=== PATIENT | female | born 1975 | race Caucasian/White ===

== ENCOUNTER → 2023-02-24 | Outpatient (CLI) | payer OTHER ==
--- NOTE | 2023-02-24 12:29 | USB ---
Reason for Exam: Additional evaluation requested from abnormal screening. Patient History: Menarche at age 7. First Full-Term at age 15. Hormonal Contraceptives, from age 16 until age 36. Risk Values: Alissa 5 year model risk: 0.7%. NCI Lifetime model risk: 7.3%. Technique: Method: Targeted. Findings: The lower outer quadrant of the left breast, the axilla of the left breast and the retroareolar of the left breast were scanned. At the 4:00 position 6 cm from the nipple is an oval hypoechoic area. Gunn are not smooth. Through-transmission is not evident. This is of uncertain etiology. Biopsy is recommended. There is a large dilated duct present. No obstructing etiology is identified. There is a small hypoechoic area which may be a small duct estimated to measure 0.4 x 0.2 x 0.5 cm. Short-term follow-up can be performed with ultrasound. Overall Assessment: Suspicious, BI-RAD 4 Management: Ultrasound Core Biopsy of the left breast. A clinical breast exam by your physician is recommended on an annual basis and results should be correlated with mammographic findings. This exam should not preclude additional follow-up of suspicious palpable abnormalities. Results were given to the patient verbally at the time of exam. Electronically signed and approved by: David Cortes D.O. Radiologis
--- NOTE | 2023-02-24 14:01 | MM ---
Reason for Exam: Follow-up at short interval from prior study. Patient History: Menarche at age 7. First Full-Term at age 15. Hormonal Contraceptives, from age 16 until age 36. Last menstrual period: 02/24/2023 Risk Values: Alissa 5 year model risk: 0.7%. NCI Lifetime model risk: 7.3%. Tissue Density: The breast tissue is heterogeneously dense. This may lower the sensitivity of mammography. Findings: Analyzed By CAD. Pattern appears stable from comparison. There is an underlying 0.4 cm nodule located 4 cm from the nipple lower outer aspect left breast. Ultrasound is recommended for additional workup. Overall Assessment: Incomplete: need additional imaging evaluation, BI-RAD 0 Management: Diagnostic Breast Ultrasound of the left breast. A negative mammogram report should not preclude additional follow up of suspicious palpable abnormalities. Patient should continue monthly self breast exam. A clinical breast exam by your physician is recommended on an annual basis and results should be correlated with mammographic findings. Electronically signed and approved by: David Cortes D.O. Radiologis
== END | disposition home or self-care (01) ==
LOC: RADMAMWWP 09:51
PROVIDERS: ATTEND Family Medicine
DX: R92.0 Mammographic microcalcification found on diagnostic imaging of breast (principal); R92.2 Inconclusive mammogram
CPT/HCPCS: 77065; 76642; G0279; 77061

== ENCOUNTER → 2023-03-17 | Day surgery (SDC) | payer OTHER ==
--- NOTE | 2023-03-22 15:08 | USB ---
Risk Values: Alissa 5 year model risk: 0.7%. NCI Lifetime model risk: 7.3%. Findings: Prior to scheduled biopsy the area in question was reimaged. The lesion could not be reproduced with certainty and therefore biopsy was discontinued. This was discussed with the patient and six-month follow-up is recommended. Management: Diagnostic Breast Ultrasound of both breasts in 6 months. Electronically signed and approved by: Rhys Robles M.D. Radiologis
== END ==
LOC: RADUSWWP 12:58
PROVIDERS: ATTEND Surgery
DX: Z53.8 Procedure and treatment not carried out for other reasons (principal); R92.8 Other abnormal and inconclusive findings on diagnostic imaging of breast

== ENCOUNTER → 2023-08-19 | Outpatient (CLI) | payer OTHER ==
--- NOTE | 2023-08-19 14:34 | USB ---
Reason for Exam: Follow-up at short interval from prior study. Patient History: Menarche at age 7. First Full-Term at age 15. Perimenopausal. Hormonal Contraceptives, from age 16 until age 36. 03/17/2023, US discontinued breast bx LT on the left side. Risk Values: Alissa 5 year model risk: 0.7%. NCI Lifetime model risk: 7.3%. Technique: Method: Targeted. Prior Study Comparison: 02/24/2023 Bilateral MG 3D diag mammo w/cad LT, [facility]. Findings: The lower outer quadrant of the left breast and the retroareolar of the left breast were scanned. No solid or cystic masses are identified.. Mildly prominent duct. Overall Assessment: Probably benign, BI-RAD 3 Management: Diagnostic Breast Ultrasound of the left breast in 6 months. A clinical breast exam by your physician is recommended on an annual basis and results should be correlated with mammographic findings. This exam should not preclude additional follow-up of suspicious palpable abnormalities. Results were given to the patient verbally at the time of exam. Electronically signed and approved by: Rhys Robles M.D. Radiologis
--- NOTE | 2023-08-26 10:12 | MM ---
Reason for Exam: Follow-up at short interval from prior study. Last screening mammogram was performed 6 month(s) ago. Patient History: Menarche at age 7. First Full-Term at age 15. Perimenopausal. Hormonal Contraceptives, from age 16 until age 36. 03/17/2023, US discontinued breast bx LT on the left side. Risk Values: Alissa 5 year model risk: 0.7%. NCI Lifetime model risk: 7.3%. Tissue Density: The breast tissue is heterogeneously dense. This may lower the sensitivity of mammography. Findings: Analyzed By CAD. Chronic nodularity bilaterally. No suspicious microcalcifications seen. Overall Assessment: Incomplete: need additional imaging evaluation, BI-RAD 0 Management: Diagnostic Breast Ultrasound of the left breast. . Results were given to the patient verbally at the time of exam. Patient should continue monthly self-breast exams. A clinical breast exam by your physician is recommended on an annual basis. This exam should not preclude additional follow-up of suspicious palpable abnormalities. Note on Alissa scores and lifetime risk: 1. A Alissa score greater than 3% is considered moderate risk. If this is the case, consider specialist referral to assess eligibility for a risk reducing agent. 2. If overall lifetime risk for the development of breast cancer is 20% or higher, the patient may qualify for future screening with alternating mammogram and breast MRI. Electronically signed and approved by: Rhys Robles M.D. Radiologis
== END | disposition home or self-care (01) ==
LOC: RADMAMWWP 08:30
PROVIDERS: ATTEND Family Medicine
DX: R92.333 Mammographic heterogeneous density, bilateral breasts (principal)
CPT/HCPCS: 77066; 76642; G0279; 77062